=== PATIENT | male | born 1990 | race Caucasian/White ===

== ENCOUNTER 2020-01-29 16:01 | Emergency (ER) | payer BC ==
[~2020-01-29] VITALS: Ht 180.3 cm; Wt 75.6 kg
[2020-01-29 16:01] VITALS: BP 138/84
--- NOTE | 2020-01-29 16:22 | PHYS DOC ---
General Adult EDM: Chief Complaint: ABSCESS HPI: HPI: Patient is a 29-year-old male who presents with a painful rash on the left side of his forehead and the bridge of his nose. He states this is been going on for a few days [facility] Bactrim because they thought it was a staph infection. Patient states the rash is very painful. He is never had shingles before. He has pain around his eye he does not have any pain inside of his eye [] Review of Systems: Review of Systems: Constitutional: Denies fever or chills Eyes: Denies change in visual acuity HENT: Denies nasal congestion or sore throat Respiratory: Denies cough or shortness of breath Cardiovascular: Denies chest pain or edema GI: Denies abdominal pain, nausea, vomiting, bloody stools or diarrhea : Denies dysuria Musculoskeletal: Denies back pain or joint pain Integument: Per HPI Neurologic: Denies headache, focal weakness or sensory changes Endocrine: Denies polyuria or polydipsia Lymphatic: Denies swollen glands Psychiatric: Denies depression or anxiety Heart Score: Risk Factors: Risk Factors: DM, Current or recent (<one month) smoker, HTN, HLP, family history of CAD, obesity. Risk Scores: Score 0 - 3: 2.5% MACE over next 6 weeks - Discharge Home Score 4 - 6: 20.3% MACE over next 6 weeks - Admit for Clinical Observation Score 7 - 10: 72.7% MACE over next 6 weeks - Early Invasive Strategies Allergies: Allergies: Allergies Coded Allergies Type Severity Reaction Last Updated Verified No Known Drug Allergies 01/29/20 No Physical Exam: PE: Constitutional: Well developed, well nourished, no acute distress, non-toxic appearance. [] HENT: Normocephalic, atraumatic, bilateral external ears normal, oropharynx moist, no oral exudates, nose normal. [] Eyes: Pupils equal round reactive to light, there are no dendritic lesions] Neck: Normal range of motion, no tenderness, supple, no stridor. [] Cardiovascular:Heart rate regular rhythm, no murmur [] Lungs & Thorax: Bilateral breath sounds clear to auscultation [] Abdomen: Bowel sounds normal, soft, no tenderness, no masses, no pulsatile masses. [] Skin: Vesicular rash left side of his forehead consistent with shingles [] Back: No tenderness, no CVA tenderness. [] Extremities: No tenderness, no cyanosis, no clubbing, ROM intact, no edema. [] Neurologic: Alert and oriented X 3, normal motor function, normal sensory function, no focal deficits noted. [] Psychologic: Anxious [] EKG: EKG: [] Radiology/Procedures: Radiology/Procedures: [] Course & Med Decision Making: Course & Med Decision Making Pertinent Labs and Imaging studies reviewed. (See chart for details) [ED course: Evaluation reveals a 29-year-old male with what appears to be herpes zoster to the left side of his face and left periorbital area. I did stain and evaluate his left eye and I did not appreciate any dendritic lesions or any evidence of keratitis. We will start him on Valtrex and steroid eyedrops with recommendation for follow-up with an special education teaching assistant. Dragon Disclaimer: Dragon Disclaimer: This electronic medical record was generated, in whole or in part, using a voice recognition dictation system. Departure Departure: Impression: Primary Impression: Herpes zoster conjunctivitis of left eye Additional Impression: Shingles Qualified Codes: B02.31 - Zoster conjunctivitis Disposition: HOME/RESIDENCE PRIOR TO ADM Condition: STABLE Referrals: OLIVER MAHER MD (PCP) NIVIA REYES It is very important that you follow-up with Dr. Molina to recheck your eye on Friday. Patient Instructions: Acyclovir tablets or capsules, Prednisolone; Sulfacetamide eye solution or suspension, Shingles, VIS, Shingles - CDC Additional Instructions: It is very important that you follow-up with the special education teaching assistant. Scripts Prednisolone Acetate/Pf (Prednisolone Acet 1% Eye Drop) 5 Ml Drops.susp 1 DROP OS QID for herpes ophthamicus for 30 Days, #1 BOTTLE 0 Refills Prov: DEBO ESPITIA DO 01/29/20 Hydrocodone Bit/Acetaminophen (NORCO 5-325 TABLET) 1 Each Tablet 1-2 TAB PO Q4-6HRS for PAIN, #20 TAB Prov: DEBO ESPITIA DO 01/29/20 Valacyclovir Hcl (VALTREX) 1,000 Mg Tablet 1 TAB PO TID for Shingles, #30 TAB It is extremely important that she take all of this medication exactly as directed Prov: DEBO ESPITIA DO 01/29/20 Justification of Admission: Justification of Admission: Justification of Admission Dx: No DEBO ESPITIA DO Jan 29, 2020 16:22
[2020-01-29] MEDS ORDERED: TETRACAINE 0.5% OPHTH SOLUTION 4ML BOTTLE. ONE (16:25)
[2020-01-29] MEDS ORDERED: FLUORESCEIN 1MG EYE STRIP. OS ONE (16:30)
[2020-01-29] MEDS ORDERED: TETRACAINE 0.5% OPHTH SOLUTION 4ML BOTTLE. OS ONE (16:30)
[2020-01-29] MEDS ORDERED: PRED5DRO20 OS (16:44)
[2020-01-29] MEDS ORDERED: VALA10005 PO (16:44)
[2020-01-29] MEDS ORDERED: HYDR-3165 PO (16:44)
[2020-01-29] MEDS ORDERED: valACYclovir 500 MG TABLET. PO ONE (16:45)
[2020-01-29] MEDS ORDERED: prednisoLONE ACETATE 1% OPHTH SUSPENSION 5ML BOTTLE. OS ONE (16:45)
== END 2020-01-29 17:00 | disposition home or self-care (01) ==
LOC: ER 16:01
DX: B02.31 Zoster conjunctivitis (principal)
CPT/HCPCS: 99284